=== PATIENT | male | born 1945 ===

== ENCOUNTER → 2021-05-04 | Outpatient (CLI) | payer SELFPAY | END | disposition home or self-care (01) | LOC: LAB SHORT 15:25 | DX: D22.5 Melanocytic nevi of trunk (principal); D22.61 Melanocytic nevi of right upper limb, including shoulder; D22.72 Melanocytic nevi of left lower limb, including hip; R21 Rash and other nonspecific skin eruption; L57.8 Other skin changes due to chronic exposure to nonionizing radiation; L81.4 Other melanin hyperpigmentation; Z71.89 Other specified counseling | CPT/HCPCS: 87070; 87077; 87186; 87205 ==